=== PATIENT | female | born 1950 | race Hispanic/Latino ===

== ENCOUNTER 2018-03-22 21:54 | Inpatient (IN) | payer OTHER ==
[~2018-03-22] VITALS: Ht 142.2 cm; Wt 152.4 kg
[2018-03-22] MEDS ORDERED: NITROGLYCERIN 1GM/1 INCH PACKET TD ONE (22:07)
[2018-03-22] MEDS ORDERED: FUROSEMIDE 10 MG/ML 4ML VIAL ONE (22:07)
[2018-03-22] MEDS ORDERED: IPRATROPIUM/ALBUTEROL SULFATE 3 ML SOLUTION IH ONE (22:21)
[2018-03-22 22:25] LABS: BASOPHILS % (AUTO) 0.9 % (0.0-5.0); LYMPHOCYTES % (AUTO) 14.8 % (21.0-51.0); MEAN CORPUSCULAR HEMOGLOBIN 31.6 pg (27.0-33.0); MEAN CORPUSCULAR HGB CONC 32.7 g/dL (32.0-36.0); MEAN CORPUSCULAR VOLUME 96.7 fL (79-99); MONOCYTES % (AUTO) 4.3 % (3.0-13.0); NUCLEATED RED BLOOD CELLS 3.7 % (0.0-0.19); PLATELET COUNT (AUTO) 145 K/uL (130-400); RED BLOOD CELL COUNT(AUTO) 2.99 MIL/uL (4.00-5.50); RED CELL DISTRIBUTION WIDTH 16.9 % (11.0-15.5); WHITE BLOOD COUNT (AUTO) 7.9 K/uL (4.8-10.8)
[2018-03-22 22:34] LABS: CREATININE 3.7 mg/dL (0.5-1.5); INR 0.98 (0.85-1.15); PARTIAL THROMBOPLASTIN TIME 30.1 SEC (26.3-35.5); POTASSIUM 5.5 mmol/L (3.5-5.1); PROTHROMBIN TIME 10.3 SEC (9.6-11.6)
[2018-03-22 22:47] LABS: ALBUMIN 2.3 g/dL (3.5-5.0); BILIRUBIN,TOTAL 0.2 mg/dL (0.2-1.0); CREATINE KINASE MB 1.6 ng/mL (0.5-3.6); TOTAL PROTEIN, SERUM 7.2 g/dL (6.0-8.3)
[2018-03-22 22:48] LABS: B-TYPE NATRIURETIC PEPTIDE 461 pg/mL (0-100)
[2018-03-22 23:04] LABS: APPEARANCE,URINE Clear (CLEAR); BILIRUBIN,URINE Negative (NEGATIVE); COLOR,URINE Yellow (YELLOW); GLUCOSE, URINE (UA) 500 mg/dL (NEGATIVE); KETONES,URINE Negative (NEGATIVE); LEUKOCYTE ESTERASE ,URINE Negative (NEGATIVE); NITRATE,URINE Negative (NEGATIVE); OCCULT BLOOD,URINE Small (NEGATIVE); PH,URINE 6.5 (5.0-8.0); PROTEIN,URINE >=1000 (NEGATIVE); UROBILINOGEN,URINE 0.2 mg/dL (0.2-1.0)
[2018-03-22 23:20] LABS: BACTERIA,URINE Few /HPF (None Seen); SQUAMOUS EPITHELIAL CELL,UR 0-2 /HPF (0-2); WBC,URINE 0-1 /HPF (0-1)
[2018-03-23] VITALS (7 sets, daily range): BP systolic 144–159; BP diastolic 51–79
[2018-03-23] MEDS ORDERED: SODIUM POLYSTYRENE SULFONATE 15 GM/60 ML ML ONE (00:06)
[2018-03-23] MEDS ORDERED: VIT1CAPS46 PO (01:44)
[2018-03-23] MEDS ORDERED: LEVO100 PO (01:44)
[2018-03-23] MEDS ORDERED: CITA-107 PO (01:44)
[2018-03-23] MEDS ORDERED: FOLI1TAB61 PO (01:44)
[2018-03-23] MEDS ORDERED: OFLO5DRO OD (01:44)
[2018-03-23] MEDS ORDERED: LISI-613 PO (01:44)
[2018-03-23] MEDS ORDERED: FURO40TA7 PO (01:44)
[2018-03-23] MEDS ORDERED: GABA300S PO (01:44)
[2018-03-23] MEDS ORDERED: ATOR40TA69 PO (01:44)
[2018-03-23] MEDS ORDERED: KETOROLAC TROMETHAMINE 15MG/ML IV PRN (02:00)
[2018-03-23] MEDS ORDERED: DEXTROSE 50%-WATER 50 ML DISP.SYRIN IV PRN (02:00)
[2018-03-23] MEDS ORDERED: POTASSIUM CHLORIDE 20 MEQ ERTAB PO PRN (02:00)
[2018-03-23] MEDS: HEPARIN SODIUM 5000UNIT/ML 1ML VIAL SQ SCH ×3 (02:00→17:20)
[2018-03-23] MEDS ORDERED: LIDOCAINE HCL-MPF 1% 2ML VIAL IVP PRN (02:00)
[2018-03-23] MEDS ORDERED: POTASSIUM CHLORIDE 10% ELIXIR 20 MEQ/15 ML UDCUP PO PRN (02:00)
[2018-03-23] MEDS ORDERED: FUROSEMIDE 10 MG/ML 2ML VIAL IV SCH (02:00)
[2018-03-23] MEDS ORDERED: GLUCAGON 1MG KIT 1 MG ML IM PRN (02:00)
[2018-03-23] MEDS ORDERED: POTASSIUM CHLORIDE 20MEQ/100ML 100 ML IV PRN (02:00)
[2018-03-23 03:43] LABS: HEMATOCRIT 26.5 % (36-48); MEAN CORPUSCULAR HEMOGLOBIN 32.7 pg (27.0-33.0); MEAN CORPUSCULAR HGB CONC 33.6 g/dL (32.0-36.0); MEAN CORPUSCULAR VOLUME 97.4 fL (79-99); NUCLEATED RED BLOOD CELLS 0.1 % (0.0-0.19); PLATELET COUNT (AUTO) 144 K/uL (130-400); RED BLOOD CELL COUNT(AUTO) 2.73 MIL/uL (4.00-5.50); RED CELL DISTRIBUTION WIDTH 16.3 % (11.0-15.5); WHITE BLOOD COUNT (AUTO) 7.6 K/uL (4.8-10.8)
[2018-03-23 03:51] LABS: CREATININE 3.6 mg/dL (0.5-1.5); POTASSIUM 5.4 mmol/L (3.5-5.1)
[2018-03-23 03:53] LABS: B-TYPE NATRIURETIC PEPTIDE 246 pg/mL (0-100)
[2018-03-23] MEDS ORDERED: HEPARIN SODIUM 5000UNIT/ML 1ML VIAL ONE (06:22)
[2018-03-23] MEDS: INSULIN HUMULIN R 100 UNIT/ML 3ML SQ SCH ×4 (07:30→20:35)
[2018-03-23] MEDS ORDERED: CITALOPRAM 20 MG TABLET PO SCH (08:50)
[2018-03-23] MEDS: SODIUM POLYSTYRENE SULFONATE 15 GM/60 ML ML PO SCH ×2 (09:00→20:17)
[2018-03-23] MEDS ORDERED: OFLOXACIN 0.3% 5ML DROPS OD SCH ×2 (09:00→13:00)
[2018-03-23] MEDS ORDERED: SODIUM POLYSTYRENE SULFONATE 15 GM/60 ML ML RC SCH (09:30)
[2018-03-23] MEDS: LISINOPRIL 20 MG TABLET PO SCH ×2 (09:45→20:18)
[2018-03-23] MEDS: GABAPENTIN 300 MG CAPSULE PO SCH ×3 (09:45→20:24)
[2018-03-23] MEDS: FOLIC ACID/VITAMIN B COMP W-C 1 MG CAPSULE PO SCH (09:45)
[2018-03-23] MEDS: MOXIFLOXACIN HCL 0.5% 3ML DROPS OD SCH ×4 (09:46→20:25)
[2018-03-23 10:00] LABS: ABG HCO3 24.7 mmol/L (21.0-28.0); ABG OXYGEN SATURATION 76.7 % (95.0-99.0); ABG PCO2 74 mmHg (32-45)
[2018-03-23 10:19] LABS: ABG BASE EXCESS -5.3 mmol/L (-2.0-3.0); ABG HCO3 25.2 mmol/L (21.0-28.0); ABG OXYGEN SATURATION 92.6 % (95.0-99.0); ABG PCO2 72 mmHg (32-45)
[2018-03-23] MEDS ORDERED: LEVOTHYROXINE 100 MCG TABLET PO SCH (11:30)
[2018-03-23] MEDS ORDERED: GABAPENTIN 300 MG CAPSULE PO SCH (14:00)
[2018-03-23] MEDS: FUROSEMIDE 10 MG/ML 2ML VIAL IV SCH (14:04)
[2018-03-23] MEDS: ATORVASTATIN CALCIUM 40 MG TABLET PO SCH (20:18)
[2018-03-23] MEDS ORDERED: LISINOPRIL 20 MG TABLET PO SCH (21:00)
[2018-03-24] VITALS: BP 143/65
[2018-03-24] MEDS: FUROSEMIDE 10 MG/ML 2ML VIAL IV SCH ×2 (01:45→14:16)
[2018-03-24] MEDS: HEPARIN SODIUM 5000UNIT/ML 1ML VIAL SQ SCH ×3 (01:46→17:33)
[2018-03-24 03:25] VITALS: BP 139/60
[2018-03-24] MEDS: INSULIN HUMULIN R 100 UNIT/ML 3ML SQ SCH ×4 (05:48→21:01)
[2018-03-24 07:20] VITALS: BP 165/79
[2018-03-24] MEDS: CITALOPRAM 20 MG TABLET PO SCH (08:48)
[2018-03-24] MEDS: LEVOTHYROXINE 100 MCG TABLET PO SCH (08:48)
[2018-03-24] MEDS: FOLIC ACID/VITAMIN B COMP W-C 1 MG CAPSULE PO SCH (08:48)
[2018-03-24] MEDS: LISINOPRIL 20 MG TABLET PO SCH ×2 (08:48→19:33)
[2018-03-24] MEDS: GABAPENTIN 300 MG CAPSULE PO SCH ×3 (08:48→19:33)
[2018-03-24] MEDS: MOXIFLOXACIN HCL 0.5% 3ML DROPS OD SCH ×4 (08:49→19:35)
[2018-03-24] MEDS: SODIUM POLYSTYRENE SULFONATE 15 GM/60 ML ML PO SCH ×2 (08:49→19:34)
[2018-03-24] MEDS ORDERED: ATORVASTATIN CALCIUM 40 MG TABLET PO SCH (09:00)
[2018-03-24] MEDS ORDERED: FOLIC ACID/VITAMIN B COMP W-C 1 MG CAPSULE PO SCH (09:00)
[2018-03-24 11:17] VITALS: BP 145/69
[2018-03-24 12:10] LABS: ABG BASE EXCESS -6.9 mmol/L (-2.0-3.0); ABG HCO3 23.5 mmol/L (21.0-28.0); ABG PCO2 70 mmHg (32-45)
[2018-03-24 16:50] VITALS: BP 139/61
[2018-03-24] MEDS: ATORVASTATIN CALCIUM 40 MG TABLET PO SCH (19:33)
[2018-03-24 20:01] VITALS: BP 148/60
[2018-03-25] VITALS (7 sets, daily range): BP systolic 118–179; BP diastolic 60–76
[2018-03-25] MEDS: FUROSEMIDE 10 MG/ML 2ML VIAL IV SCH (02:11)
[2018-03-25] MEDS: HEPARIN SODIUM 5000UNIT/ML 1ML VIAL SQ SCH ×3 (02:12→17:18)
[2018-03-25 04:14] LABS: HEMATOCRIT 28.9 % (36-48); MEAN CORPUSCULAR HEMOGLOBIN 31.5 pg (27.0-33.0); MEAN CORPUSCULAR HGB CONC 31.9 g/dL (32.0-36.0); MEAN CORPUSCULAR VOLUME 98.8 fL (79-99); NUCLEATED RED BLOOD CELLS 0.2 % (0.0-0.19); PLATELET COUNT (AUTO) 168 K/uL (130-400); RED BLOOD CELL COUNT(AUTO) 2.93 MIL/uL (4.00-5.50); RED CELL DISTRIBUTION WIDTH 16.5 % (11.0-15.5); WHITE BLOOD COUNT (AUTO) 13.5 K/uL (4.8-10.8)
[2018-03-25 04:18] LABS: MAGNESIUM 1.7 mg/dL (1.80-2.40); PHOSPHORUS 6.7 mg/dL (2.5-4.9); POTASSIUM 5.4 mmol/L (3.5-5.1); URIC ACID 7.5 mg/dL (2.6-7.2)
[2018-03-25 04:31] LABS: % IRON SATURATION 12.2 % (22-44)
[2018-03-25] MEDS: INSULIN HUMULIN R 100 UNIT/ML 3ML SQ SCH ×4 (06:02→20:41)
[2018-03-25 07:52] LABS: ABG BASE EXCESS -7.8 mmol/L (-2.0-3.0); ABG OXYGEN SATURATION 96.8 % (95.0-99.0); ABG PCO2 72 mmHg (32-45)
[2018-03-25] MEDS: SODIUM POLYSTYRENE SULFONATE 15 GM/60 ML ML PO SCH ×2 (08:25→20:38)
[2018-03-25] MEDS: GABAPENTIN 300 MG CAPSULE PO SCH ×3 (08:25→20:39)
[2018-03-25] MEDS: FOLIC ACID/VITAMIN B COMP W-C 1 MG CAPSULE PO SCH (08:25)
[2018-03-25] MEDS: CITALOPRAM 20 MG TABLET PO SCH (08:26)
[2018-03-25] MEDS: MOXIFLOXACIN HCL 0.5% 3ML DROPS OD SCH ×4 (08:26→20:39)
[2018-03-25] MEDS: LISINOPRIL 20 MG TABLET PO SCH (08:26)
[2018-03-25] MEDS: LEVOTHYROXINE 100 MCG TABLET PO SCH (08:26)
[2018-03-25] MEDS ORDERED: COMPOUND IV MISC 1 EACH IVSOLN MISC PRN (11:30)
[2018-03-25] MEDS: CALCIUM ACETATE 667 MG CAPSULE PO SCH ×2 (12:00→17:17)
[2018-03-25 12:36] LABS: ABG HCO3 24.5 mmol/L (21.0-28.0); ABG OXYGEN SATURATION 94.8 % (95.0-99.0); ABG PCO2 79 mmHg (32-45)
[2018-03-25] MEDS ORDERED: IPRATROPIUM/ALBUTEROL SULFATE 3 ML SOLUTION IH SCH (12:45)
[2018-03-25] MEDS: ZOSYN 3.375GM+NS 50ML 50 ML IV SCH (13:30)
[2018-03-25 15:02] LABS: APPEARANCE,URINE CLOUDY (CLEAR); BILIRUBIN,URINE NEGATIVE (NEGATIVE); COLOR,URINE YELLOW (YELLOW); GLUCOSE, URINE (UA) 100 mg/dL (NEGATIVE); KETONES,URINE NEGATIVE (NEGATIVE); LEUKOCYTE ESTERASE ,URINE MODERATE (NEGATIVE); NITRATE,URINE NEGATIVE (NEGATIVE); OCCULT BLOOD,URINE SMALL (NEGATIVE); PROTEIN,URINE >=300 (NEGATIVE); UROBILINOGEN,URINE 0.2 mg/dL (0.2-1.0)
[2018-03-25 15:23] LABS: BACTERIA,URINE Many /HPF (None Seen); WBC,URINE 26-50 /HPF (0-1)
[2018-03-25 17:33] LABS: ABG BASE EXCESS -8.7 mmol/L (-2.0-3.0); ABG HCO3 22.2 mmol/L (21.0-28.0); ABG OXYGEN SATURATION 97.1 % (95.0-99.0); ABG PCO2 72 mmHg (32-45)
[2018-03-25] MEDS ORDERED: FUROSEMIDE 10 MG/ML 4ML VIAL IV ONE (18:00)
[2018-03-25] MEDS: IPRATROPIUM/ALBUTEROL SULFATE 3 ML SOLUTION IH SCH (18:34)
[2018-03-25] MEDS: ATORVASTATIN CALCIUM 40 MG TABLET PO SCH (20:38)
[2018-03-26] MEDS: IPRATROPIUM/ALBUTEROL SULFATE 3 ML SOLUTION IH SCH ×5 (00:14→23:09)
[2018-03-26] MEDS: ZOSYN 3.375GM+NS 50ML 50 ML IV SCH ×2 (01:19→13:37)
[2018-03-26] MEDS: HEPARIN SODIUM 5000UNIT/ML 1ML VIAL SQ SCH ×3 (01:20→17:10)
[2018-03-26 04:00] VITALS: BP 153/71
[2018-03-26 04:46] LABS: HEMATOCRIT 25.9 % (36-48); MEAN CORPUSCULAR HEMOGLOBIN 32.2 pg (27.0-33.0); MEAN CORPUSCULAR HGB CONC 32.7 g/dL (32.0-36.0); MEAN CORPUSCULAR VOLUME 98.6 fL (79-99); NUCLEATED RED BLOOD CELLS 0.6 % (0.0-0.19); PLATELET COUNT (AUTO) 120 K/uL (130-400); RED BLOOD CELL COUNT(AUTO) 2.63 MIL/uL (4.00-5.50); RED CELL DISTRIBUTION WIDTH 16.3 % (11.0-15.5); WHITE BLOOD COUNT (AUTO) 5.2 K/uL (4.8-10.8)
[2018-03-26 04:51] LABS: CREATININE 4.5 mg/dL (0.5-1.5); POTASSIUM 5.4 mmol/L (3.5-5.1)
[2018-03-26 05:02] LABS: B-TYPE NATRIURETIC PEPTIDE 535 pg/mL (0-100)
[2018-03-26 05:07] LABS: BAND NEUTROPHILS % (MANUAL) 9 % (0-2); BASOPHILS % (MANUAL) 2 % (0-2); EOSINOPHILS % (MANUAL) 3 % (1-6); LYMPHOCYTES % (MANUAL) 11 % (22-44); MAN.DIFF COMMENT-IMPRESSION MANUAL DIFFERENTIAL; MONOCYTES % (MANUAL) 8 % (2-9); PLATELET MORPHOLOGY COMMENT SLIGHTLY DECREASED; SEGMENTED NEUTROPHILS % 67 % (40-70)
[2018-03-26] MEDS: INSULIN HUMULIN R 100 UNIT/ML 3ML SQ SCH ×4 (05:36→21:00)
[2018-03-26 07:36] LABS: ABG BASE EXCESS -5.9 mmol/L (-2.0-3.0); ABG HCO3 24.5 mmol/L (21.0-28.0); ABG OXYGEN SATURATION 96.2 % (95.0-99.0); ABG PCO2 72 mmHg (32-45)
[2018-03-26 08:00] VITALS: BP 125/67
[2018-03-26] MEDS: LEVOTHYROXINE 100 MCG TABLET PO SCH (10:07)
[2018-03-26] MEDS: FOLIC ACID/VITAMIN B COMP W-C 1 MG CAPSULE PO SCH (10:07)
[2018-03-26] MEDS: CALCIUM ACETATE 667 MG CAPSULE PO SCH ×3 (10:07→16:39)
[2018-03-26] MEDS: CITALOPRAM 20 MG TABLET PO SCH (10:07)
[2018-03-26] MEDS: GABAPENTIN 300 MG CAPSULE PO SCH ×3 (10:07→21:02)
[2018-03-26] MEDS: SODIUM POLYSTYRENE SULFONATE 15 GM/60 ML ML PO SCH ×2 (10:07→21:01)
[2018-03-26] MEDS: IRON SUCROSE COMPLEX 100 MG in SODIUM CHLORIDE 0.9% 50 ML IV SCH (10:16)
[2018-03-26] MEDS: MOXIFLOXACIN HCL 0.5% 3ML DROPS OD SCH ×4 (10:36→21:02)
[2018-03-26 11:00] VITALS: BP 129/66
[2018-03-26 13:59] LABS: HEMATOCRIT 28.1 % (36-48); MEAN CORPUSCULAR HEMOGLOBIN 31.5 pg (27.0-33.0); MEAN CORPUSCULAR HGB CONC 31.6 g/dL (32.0-36.0); MEAN CORPUSCULAR VOLUME 99.8 fL (79-99); NUCLEATED RED BLOOD CELLS 0.3 % (0.0-0.19); PLATELET COUNT (AUTO) 132 K/uL (130-400); RED BLOOD CELL COUNT(AUTO) 2.82 MIL/uL (4.00-5.50); RED CELL DISTRIBUTION WIDTH 16.6 % (11.0-15.5); WHITE BLOOD COUNT (AUTO) 7.1 K/uL (4.8-10.8)
[2018-03-26 14:13] LABS: CREATININE 4.6 mg/dL (0.5-1.5); POTASSIUM 4.9 mmol/L (3.5-5.1)
[2018-03-26] MEDS ORDERED: SODIUM POLYSTYRENE SULFONATE 15 GM/60 ML ML RC ONE (14:45)
[2018-03-26 16:00] VITALS: BP 144/68
[2018-03-26 20:14] VITALS: BP 159/76
[2018-03-26] MEDS: ATORVASTATIN CALCIUM 40 MG TABLET PO SCH (21:03)
[2018-03-26 23:00] VITALS: BP 155/75
[2018-03-27] MEDS: ZOSYN 3.375GM+NS 50ML 50 ML IV SCH ×2 (00:56→13:29)
[2018-03-27] MEDS: HEPARIN SODIUM 5000UNIT/ML 1ML VIAL SQ SCH ×3 (01:42→17:15)
[2018-03-27 03:00] VITALS: BP 150/69
[2018-03-27 04:23] LABS: CREATININE 4.8 mg/dL (0.5-1.5); INR 0.97 (0.85-1.15); PARTIAL THROMBOPLASTIN TIME 22.4 SEC (26.3-35.5); POTASSIUM 4.8 mmol/L (3.5-5.1); PROTHROMBIN TIME 10.2 SEC (9.6-11.6)
[2018-03-27] MEDS: INSULIN HUMULIN R 100 UNIT/ML 3ML SQ SCH ×4 (05:53→21:31)
[2018-03-27 05:58] LABS: HEMATOCRIT 25.8 % (36-48); MEAN CORPUSCULAR HEMOGLOBIN 30.8 pg (27.0-33.0); MEAN CORPUSCULAR VOLUME 99.4 fL (79-99); NUCLEATED RED BLOOD CELLS 0.3 % (0.0-0.19); PLATELET COUNT (AUTO) 119 K/uL (130-400); RED BLOOD CELL COUNT(AUTO) 2.59 MIL/uL (4.00-5.50); RED CELL DISTRIBUTION WIDTH 16.6 % (11.0-15.5)
[2018-03-27 06:09] LABS: BAND NEUTROPHILS % (MANUAL) 1 % (0-2); EOSINOPHILS % (MANUAL) 13 % (1-6); LYMPHOCYTES % (MANUAL) 25 % (22-44); MAN.DIFF COMMENT-IMPRESSION MANUAL DIFFERENTIAL; MONOCYTES % (MANUAL) 7 % (2-9); SEGMENTED NEUTROPHILS % 54 % (40-70)
[2018-03-27 06:10] LABS: PLATELET MORPHOLOGY COMMENT SLIGHTLY DECREASED
[2018-03-27] MEDS: IPRATROPIUM/ALBUTEROL SULFATE 3 ML SOLUTION IH SCH ×4 (06:13→23:30)
[2018-03-27 08:00] VITALS: BP 165/79
[2018-03-27] MEDS: SODIUM POLYSTYRENE SULFONATE 15 GM/60 ML ML PO SCH (09:00)
[2018-03-27] MEDS: LEVOTHYROXINE 100 MCG TABLET PO SCH (09:22)
[2018-03-27] MEDS: FOLIC ACID/VITAMIN B COMP W-C 1 MG CAPSULE PO SCH (09:22)
[2018-03-27] MEDS: GABAPENTIN 300 MG CAPSULE PO SCH ×3 (09:23→21:22)
[2018-03-27] MEDS: CITALOPRAM 20 MG TABLET PO SCH (09:23)
[2018-03-27] MEDS: CALCIUM ACETATE 667 MG CAPSULE PO SCH ×3 (09:24→17:14)
[2018-03-27] MEDS: MOXIFLOXACIN HCL 0.5% 3ML DROPS OD SCH ×4 (09:25→21:24)
[2018-03-27] MEDS: HYDRALAZINE HCL 20 MG/ML VIAL IV PRN (09:29)
[2018-03-27 11:00] VITALS: BP 133/61
[2018-03-27] MEDS: IRON SUCROSE COMPLEX 100 MG in SODIUM CHLORIDE 0.9% 50 ML IV SCH (13:29)
[2018-03-27] MEDS ORDERED: EPOETIN ALFA 10,000 UNIT/ML VIAL SQ SCH (14:00)
[2018-03-27 16:00] VITALS: BP 130/62
[2018-03-27 19:00] VITALS: BP 144/46
[2018-03-27] MEDS: ATORVASTATIN CALCIUM 40 MG TABLET PO SCH (21:22)
[2018-03-28] VITALS: BP 134/67
[2018-03-28] MEDS: HEPARIN SODIUM 5000UNIT/ML 1ML VIAL SQ SCH ×2 (00:57→09:25)
[2018-03-28] MEDS: ZOSYN 3.375GM+NS 50ML 50 ML IV SCH ×2 (01:19→13:35)
[2018-03-28 04:00] VITALS: BP 137/62
[2018-03-28 04:06] LABS: BASOPHILS % (AUTO) 0.8 % (0.0-5.0); EOSINOPHILS % (AUTO) 5.6 % (0.0-8.0); HEMATOCRIT 26.2 % (36-48); LYMPHOCYTES % (AUTO) 14.8 % (21.0-51.0); MEAN CORPUSCULAR HEMOGLOBIN 30.4 pg (27.0-33.0); MEAN CORPUSCULAR HGB CONC 31.1 g/dL (32.0-36.0); NEUTROPHILS % (AUTO) 72.8 % (40.0-77.0); NUCLEATED RED BLOOD CELLS 0.5 % (0.0-0.19); PLATELET COUNT (AUTO) 120 K/uL (130-400); RED BLOOD CELL COUNT(AUTO) 2.68 MIL/uL (4.00-5.50); RED CELL DISTRIBUTION WIDTH 16.8 % (11.0-15.5); WHITE BLOOD COUNT (AUTO) 6.6 K/uL (4.8-10.8)
[2018-03-28 04:45] LABS: CREATININE 5.2 mg/dL (0.5-1.5); POTASSIUM 4.3 mmol/L (3.5-5.1)
[2018-03-28] MEDS: INSULIN HUMULIN R 100 UNIT/ML 3ML SQ SCH ×4 (06:06→21:08)
[2018-03-28] MEDS: IPRATROPIUM/ALBUTEROL SULFATE 3 ML SOLUTION IH SCH ×4 (07:06→23:26)
[2018-03-28 08:00] VITALS: BP 132/58
[2018-03-28] MEDS ORDERED: FLUOXETINE HCL 10 MG CAPSULE PO SCH (09:00)
[2018-03-28] MEDS: LEVOTHYROXINE 100 MCG TABLET PO SCH (09:40)
[2018-03-28] MEDS: CALCIUM ACETATE 667 MG CAPSULE PO SCH ×3 (09:40→15:40)
[2018-03-28] MEDS: MOXIFLOXACIN HCL 0.5% 3ML DROPS OD SCH ×4 (09:41→21:14)
[2018-03-28] MEDS: FOLIC ACID/VITAMIN B COMP W-C 1 MG CAPSULE PO SCH (09:41)
[2018-03-28] MEDS: FLUOXETINE HCL 20 MG CAPSULE PO SCH (09:41)
[2018-03-28] MEDS: GABAPENTIN 300 MG CAPSULE PO SCH ×3 (09:41→21:12)
[2018-03-28] MEDS: IRON SUCROSE COMPLEX 100 MG in SODIUM CHLORIDE 0.9% 50 ML IV SCH (09:41)
[2018-03-28 11:00] VITALS: BP 141/62
[2018-03-28] MEDS ORDERED: COMPOUND IV MISC 1 EACH IVSOLN MISC PRN (11:45)
[2018-03-28] MEDS ORDERED: SODIUM CHLORIDE 45 ML SPRY NS PRN (13:00)
[2018-03-28] MEDS ORDERED: OXYMETAZOLINE HCL SPRAY 15 ML BOTTLE EN PRN (13:00)
[2018-03-28 16:00] VITALS: BP 118/52
[2018-03-28] MEDS: HONEY 1 APPL/ML TUBE TP SCH (18:42)
[2018-03-28 20:00] VITALS: BP 128/60
[2018-03-28] MEDS ORDERED: HYDROXYZINE HCL 25 MG TABLET PO SCH (21:00)
[2018-03-28] MEDS: HYDROXYZINE HCL 25 MG TABLET PO SCH (21:12)
[2018-03-28] MEDS: ATORVASTATIN CALCIUM 40 MG TABLET PO SCH (21:12)
[2018-03-29] VITALS (21 sets, daily range): BP systolic 97–141; BP diastolic 42–72
[2018-03-29] MEDS: ZOSYN 3.375GM+NS 50ML 50 ML IV SCH ×2 (00:52→13:30)
[2018-03-29 04:57] LABS: ABG HCO3 23.8 mmol/L (21.0-28.0); ABG OXYGEN SATURATION 96.8 % (95.0-99.0); ABG PCO2 73 mmHg (32-45)
[2018-03-29 05:03] LABS: INR 0.98 (0.85-1.15); PARTIAL THROMBOPLASTIN TIME 31.3 SEC (26.3-35.5); PROTHROMBIN TIME 10.3 SEC (9.6-11.6)
[2018-03-29 05:05] LABS: BASOPHILS % (AUTO) 0.8 % (0.0-5.0); HEMATOCRIT 25.2 % (36-48); MEAN CORPUSCULAR HEMOGLOBIN 30.9 pg (27.0-33.0); MEAN CORPUSCULAR HGB CONC 31.7 g/dL (32.0-36.0); MEAN CORPUSCULAR VOLUME 97.5 fL (79-99); MONOCYTES % (AUTO) 4.9 % (3.0-13.0); NEUTROPHILS % (AUTO) 75.3 % (40.0-77.0); NUCLEATED RED BLOOD CELLS 0.4 % (0.0-0.19); PLATELET COUNT (AUTO) 132 K/uL (130-400); RED BLOOD CELL COUNT(AUTO) 2.59 MIL/uL (4.00-5.50); RED CELL DISTRIBUTION WIDTH 16.4 % (11.0-15.5)
[2018-03-29 05:14] LABS: CREATININE 5.7 mg/dL (0.5-1.5); POTASSIUM 4.3 mmol/L (3.5-5.1)
[2018-03-29] MEDS: INSULIN HUMULIN R 100 UNIT/ML 3ML SQ SCH ×4 (05:21→21:00)
[2018-03-29] MEDS: IPRATROPIUM/ALBUTEROL SULFATE 3 ML SOLUTION IH SCH ×3 (06:38→18:34)
[2018-03-29] MEDS: LEVOTHYROXINE 100 MCG TABLET PO SCH (08:44)
[2018-03-29] MEDS: CALCIUM ACETATE 667 MG CAPSULE PO SCH ×3 (08:44→16:02)
[2018-03-29] MEDS: GABAPENTIN 300 MG CAPSULE PO SCH ×3 (08:44→21:10)
[2018-03-29] MEDS: FLUOXETINE HCL 20 MG CAPSULE PO SCH (08:44)
[2018-03-29] MEDS: FOLIC ACID/VITAMIN B COMP W-C 1 MG CAPSULE PO SCH (08:44)
[2018-03-29] MEDS: IRON SUCROSE COMPLEX 100 MG in SODIUM CHLORIDE 0.9% 50 ML IV SCH (08:45)
[2018-03-29] MEDS: MOXIFLOXACIN HCL 0.5% 3ML DROPS OD SCH ×4 (08:45→21:10)
[2018-03-29] MEDS: HONEY 1 APPL/ML TUBE TP SCH (08:46)
[2018-03-29] MEDS ORDERED: LIDOCAINE HCL 1% MDV 50ML VIAL ONE (13:04)
[2018-03-29 14:39] LABS: ABG BASE EXCESS -7.1 mmol/L (-2.0-3.0); ABG HCO3 22.8 mmol/L (21.0-28.0); ABG OXYGEN SATURATION 97.8 % (95.0-99.0); ABG PCO2 65 mmHg (32-45)
[2018-03-29] MEDS ORDERED: HEPARIN SODIUM 5000UNIT/ML 1ML VIAL ONE (16:58)
[2018-03-29] MEDS ORDERED: SODIUM CHLORIDE 0.9% 1000ML 1,000 ML IV ONE (16:59)
[2018-03-29] MEDS: ATORVASTATIN CALCIUM 40 MG TABLET PO SCH (21:10)
[2018-03-29] MEDS: HYDROXYZINE HCL 25 MG TABLET PO SCH (21:10)
[2018-03-29] MEDS: ACETAMINOPHEN 325 MG TAB PO PRN (21:27)
[2018-03-30] VITALS (25 sets, daily range): BP systolic 94–135; BP diastolic 39–66
[2018-03-30] MEDS: IPRATROPIUM/ALBUTEROL SULFATE 3 ML SOLUTION IH SCH ×4 (00:23→18:24)
[2018-03-30] MEDS: ZOSYN 3.375GM+NS 50ML 50 ML IV SCH (01:45)
[2018-03-30 03:22] LABS: BASOPHILS % (AUTO) 0.6 % (0.0-5.0); EOSINOPHILS % (AUTO) 5.6 % (0.0-8.0); HEMATOCRIT 23.9 % (36-48); LYMPHOCYTES % (AUTO) 12.3 % (21.0-51.0); MEAN CORPUSCULAR HGB CONC 32.7 g/dL (32.0-36.0); MEAN CORPUSCULAR VOLUME 97.9 fL (79-99); MONOCYTES % (AUTO) 5.2 % (3.0-13.0); NEUTROPHILS % (AUTO) 76.3 % (40.0-77.0); PLATELET COUNT (AUTO) 126 K/uL (130-400); RED BLOOD CELL COUNT(AUTO) 2.44 MIL/uL (4.00-5.50); RED CELL DISTRIBUTION WIDTH 16.3 % (11.0-15.5); WHITE BLOOD COUNT (AUTO) 7.6 K/uL (4.8-10.8)
[2018-03-30 03:27] LABS: CREATININE 5.2 mg/dL (0.5-1.5); POTASSIUM 4.1 mmol/L (3.5-5.1)
[2018-03-30] MEDS: INSULIN HUMULIN R 100 UNIT/ML 3ML SQ SCH ×4 (06:22→20:35)
[2018-03-30] MEDS: CALCIUM ACETATE 667 MG CAPSULE PO SCH ×3 (07:50→16:38)
[2018-03-30] MEDS: GABAPENTIN 300 MG CAPSULE PO SCH ×3 (07:50→20:33)
[2018-03-30] MEDS ORDERED: SODIUM CHLORIDE 0.9% 1000ML 1,000 ML IV ONE (08:27)
[2018-03-30] MEDS ORDERED: HEPARIN SODIUM 5000UNIT/ML 1ML VIAL ONE (08:27)
[2018-03-30] MEDS: FLUOXETINE HCL 20 MG CAPSULE PO SCH (08:59)
[2018-03-30] MEDS: FOLIC ACID/VITAMIN B COMP W-C 1 MG CAPSULE PO SCH (08:59)
[2018-03-30] MEDS: LEVOTHYROXINE 100 MCG TABLET PO SCH (08:59)
[2018-03-30] MEDS: MOXIFLOXACIN HCL 0.5% 3ML DROPS OD SCH (09:03)
[2018-03-30] MEDS: HONEY 1 APPL/ML TUBE TP SCH (09:04)
[2018-03-30] MEDS: IRON SUCROSE COMPLEX 100 MG in SODIUM CHLORIDE 0.9% 50 ML IV SCH (09:28)
[2018-03-30 10:33] LABS: ABG HCO3 27.2 mmol/L (21.0-28.0); ABG OXYGEN SATURATION 94.1 % (95.0-99.0); ABG PCO2 66 mmHg (32-45)
[2018-03-30] MEDS: CEFTRIAXONE SODIUM 1 GM IVP SCH (20:33)
[2018-03-30] MEDS: HYDROXYZINE HCL 25 MG TABLET PO SCH (20:33)
[2018-03-30] MEDS: ATORVASTATIN CALCIUM 40 MG TABLET PO SCH (20:33)
[2018-03-30] MEDS ORDERED: CEFTRIAXONE 1GM/D5W 50ML 50 ML IV SCH (21:00)
[2018-03-31] VITALS (14 sets, daily range): BP systolic 98–141; BP diastolic 29–93
[2018-03-31] MEDS: IPRATROPIUM/ALBUTEROL SULFATE 3 ML SOLUTION IH SCH ×5 (00:26→23:23)
[2018-03-31 05:29] LABS: BASOPHILS % (AUTO) 0.7 % (0.0-5.0); EOSINOPHILS % (AUTO) 6.2 % (0.0-8.0); HEMATOCRIT 30.7 % (36-48); LYMPHOCYTES % (AUTO) 19.5 % (21.0-51.0); MEAN CORPUSCULAR HEMOGLOBIN 30.7 pg (27.0-33.0); MEAN CORPUSCULAR HGB CONC 32.2 g/dL (32.0-36.0); MEAN CORPUSCULAR VOLUME 95.4 fL (79-99); MONOCYTES % (AUTO) 5.2 % (3.0-13.0); NEUTROPHILS % (AUTO) 68.4 % (40.0-77.0); NUCLEATED RED BLOOD CELLS 2.6 % (0.0-0.19); PLATELET COUNT (AUTO) 117 K/uL (130-400); RED BLOOD CELL COUNT(AUTO) 3.22 MIL/uL (4.00-5.50); RED CELL DISTRIBUTION WIDTH 16.3 % (11.0-15.5); WHITE BLOOD COUNT (AUTO) 6.1 K/uL (4.8-10.8)
[2018-03-31 05:37] LABS: CREATININE 4.8 mg/dL (0.5-1.5); POTASSIUM 3.5 mmol/L (3.5-5.1)
[2018-03-31] MEDS: INSULIN HUMULIN R 100 UNIT/ML 3ML SQ SCH ×4 (05:42→21:00)
[2018-03-31] MEDS: LEVOTHYROXINE 100 MCG TABLET PO SCH (08:39)
[2018-03-31] MEDS: FOLIC ACID/VITAMIN B COMP W-C 1 MG CAPSULE PO SCH (08:39)
[2018-03-31] MEDS: GABAPENTIN 300 MG CAPSULE PO SCH ×3 (08:39→21:49)
[2018-03-31] MEDS: FLUOXETINE HCL 20 MG CAPSULE PO SCH (08:39)
[2018-03-31] MEDS: HONEY 1 APPL/ML TUBE TP SCH (08:40)
[2018-03-31] MEDS: CALCIUM ACETATE 667 MG CAPSULE PO SCH ×3 (08:40→16:19)
[2018-03-31] MEDS: IRON SUCROSE COMPLEX 100 MG in SODIUM CHLORIDE 0.9% 50 ML IV SCH (08:54)
[2018-03-31 11:08] LABS: HEPATITIS Bs ANTIGEN SCREEN P Negative (Negative)
[2018-03-31] MEDS: HEPARIN SODIUM 5000UNIT/ML 1ML VIAL SQ SCH ×2 (14:24→22:26)
[2018-03-31] MEDS: CEFTRIAXONE SODIUM 1 GM IVP SCH (21:47)
[2018-03-31] MEDS: LACTULOSE 20 GM/30 ML UDCUP PO PRN (21:49)
[2018-03-31] MEDS: HYDROXYZINE HCL 25 MG TABLET PO SCH (21:49)
[2018-03-31] MEDS: ATORVASTATIN CALCIUM 40 MG TABLET PO SCH (21:49)
[2018-04-01] MEDS ORDERED: SODIUM CHLORIDE 3% FOR INHALATION 4 ML/AMP VIAL.NEB IH ONE (02:14)
[2018-04-01 03:56] VITALS: BP 144/66
[2018-04-01 05:13] LABS: BASOPHILS % (AUTO) 0.9 % (0.0-5.0); HEMATOCRIT 21.7 % (36-48); MEAN CORPUSCULAR HEMOGLOBIN 32.1 pg (27.0-33.0); MEAN CORPUSCULAR HGB CONC 33.5 g/dL (32.0-36.0); MEAN CORPUSCULAR VOLUME 95.9 fL (79-99); MONOCYTES % (AUTO) 6.4 % (3.0-13.0); NEUTROPHILS % (AUTO) 69.7 % (40.0-77.0); NUCLEATED RED BLOOD CELLS 2.3 % (0.0-0.19); PLATELET COUNT (AUTO) 147 K/uL (130-400); RED BLOOD CELL COUNT(AUTO) 2.26 MIL/uL (4.00-5.50); RED CELL DISTRIBUTION WIDTH 16.3 % (11.0-15.5); WHITE BLOOD COUNT (AUTO) 8.2 K/uL (4.8-10.8)
[2018-04-01 05:21] LABS: CREATININE 5.2 mg/dL (0.5-1.5); POTASSIUM 3.5 mmol/L (3.5-5.1)
[2018-04-01] MEDS: IPRATROPIUM/ALBUTEROL SULFATE 3 ML SOLUTION IH SCH ×4 (06:11→23:19)
[2018-04-01] MEDS: HEPARIN SODIUM 5000UNIT/ML 1ML VIAL SQ SCH ×3 (06:27→23:04)
[2018-04-01] MEDS: INSULIN HUMULIN R 100 UNIT/ML 3ML SQ SCH ×4 (06:28→21:00)
[2018-04-01 08:00] VITALS: BP 122/58
[2018-04-01] MEDS: CALCIUM ACETATE 667 MG CAPSULE PO SCH ×3 (08:00→17:00)
[2018-04-01] MEDS: HONEY 1 APPL/ML TUBE TP SCH (09:00)
[2018-04-01] MEDS: IRON SUCROSE COMPLEX 100 MG in SODIUM CHLORIDE 0.9% 50 ML IV SCH (11:22)
[2018-04-01] MEDS: FLUOXETINE HCL 20 MG CAPSULE PO SCH (11:23)
[2018-04-01] MEDS: GABAPENTIN 300 MG CAPSULE PO SCH ×3 (11:23→21:32)
[2018-04-01] MEDS: FOLIC ACID/VITAMIN B COMP W-C 1 MG CAPSULE PO SCH (11:23)
[2018-04-01] MEDS: LEVOTHYROXINE 100 MCG TABLET PO SCH (11:23)
[2018-04-01 13:13] VITALS: BP 120/55
[2018-04-01 16:00] VITALS: BP 134/63
[2018-04-01] MEDS ORDERED: EPOETIN ALFA 20,000 UNIT/ML VIAL SQ SCH (18:41)
[2018-04-01 19:50] VITALS: BP 130/57
[2018-04-01] MEDS ORDERED: EPOETIN ALFA 3,000 UNIT/ML ML SQ SCH (21:00)
[2018-04-01] MEDS: CEFTRIAXONE SODIUM 1 GM IVP SCH (21:32)
[2018-04-01] MEDS: ATORVASTATIN CALCIUM 40 MG TABLET PO SCH (21:32)
[2018-04-01] MEDS: HYDROXYZINE HCL 25 MG TABLET PO SCH (21:32)
[2018-04-02] VITALS (11 sets, daily range): BP systolic 116–147; BP diastolic 50–81
[2018-04-02 05:12] LABS: BASOPHILS % (AUTO) 0.9 % (0.0-5.0); EOSINOPHILS % (AUTO) 5.8 % (0.0-8.0); LYMPHOCYTES % (AUTO) 14.7 % (21.0-51.0); MEAN CORPUSCULAR HGB CONC 32.2 g/dL (32.0-36.0); MEAN CORPUSCULAR VOLUME 96.1 fL (79-99); MONOCYTES % (AUTO) 5.5 % (3.0-13.0); NEUTROPHILS % (AUTO) 73.1 % (40.0-77.0); NUCLEATED RED BLOOD CELLS 1.8 % (0.0-0.19); PLATELET COUNT (AUTO) 154 K/uL (130-400); RED BLOOD CELL COUNT(AUTO) 2.39 MIL/uL (4.00-5.50); RED CELL DISTRIBUTION WIDTH 15.9 % (11.0-15.5); WHITE BLOOD COUNT (AUTO) 8.6 K/uL (4.8-10.8)
[2018-04-02 05:30] LABS: BILIRUBIN,TOTAL 0.2 mg/dL (0.2-1.0); CREATININE 4.2 mg/dL (0.5-1.5); POTASSIUM 3.5 mmol/L (3.5-5.1); TOTAL PROTEIN, SERUM 6.4 g/dL (6.0-8.3)
[2018-04-02] MEDS: INSULIN HUMULIN R 100 UNIT/ML 3ML SQ SCH ×4 (06:03→21:00)
[2018-04-02] MEDS: HEPARIN SODIUM 5000UNIT/ML 1ML VIAL SQ SCH ×3 (06:18→23:27)
[2018-04-02] MEDS: IPRATROPIUM/ALBUTEROL SULFATE 3 ML SOLUTION IH SCH ×4 (06:20→23:14)
[2018-04-02] MEDS: LEVOTHYROXINE 100 MCG TABLET PO SCH (09:53)
[2018-04-02] MEDS: HONEY 1 APPL/ML TUBE TP SCH (09:53)
[2018-04-02] MEDS: FLUOXETINE HCL 20 MG CAPSULE PO SCH (09:54)
[2018-04-02] MEDS: FOLIC ACID/VITAMIN B COMP W-C 1 MG CAPSULE PO SCH (09:54)
[2018-04-02] MEDS: GABAPENTIN 300 MG CAPSULE PO SCH ×3 (09:54→20:21)
[2018-04-02] MEDS: IRON SUCROSE COMPLEX 100 MG in SODIUM CHLORIDE 0.9% 50 ML IV SCH (09:54)
[2018-04-02] MEDS: CALCIUM ACETATE 667 MG CAPSULE PO SCH ×3 (09:54→17:18)
[2018-04-02] MEDS ORDERED: EPOETIN ALFA 10,000 UNIT/ML VIAL SQ SCH (13:45)
[2018-04-02] MEDS ORDERED: EPOETIN ALFA 20,000 UNIT/ML VIAL SQ SCH (14:00)
[2018-04-02] MEDS ORDERED: LIDOCAINE HCL 2% 20ML ONE (16:03)
[2018-04-02] MEDS ORDERED: SODIUM BICARB 50MEQ 50ML VIAL ONE (16:03)
[2018-04-02] MEDS: CEFTRIAXONE SODIUM 1 GM IVP SCH (20:20)
[2018-04-02] MEDS: ATORVASTATIN CALCIUM 40 MG TABLET PO SCH (20:20)
[2018-04-02] MEDS: HYDROXYZINE HCL 25 MG TABLET PO SCH (20:20)
[2018-04-03] VITALS: BP 128/57
[2018-04-03 04:00] VITALS: BP 127/62
[2018-04-03 05:05] LABS: BASOPHILS % (AUTO) 0.6 % (0.0-5.0); EOSINOPHILS % (AUTO) 5.9 % (0.0-8.0); HEMATOCRIT 22.4 % (36-48); LYMPHOCYTES % (AUTO) 13.8 % (21.0-51.0); MEAN CORPUSCULAR HEMOGLOBIN 32.2 pg (27.0-33.0); MEAN CORPUSCULAR HGB CONC 33.4 g/dL (32.0-36.0); MEAN CORPUSCULAR VOLUME 96.6 fL (79-99); MONOCYTES % (AUTO) 5.3 % (3.0-13.0); NEUTROPHILS % (AUTO) 74.4 % (40.0-77.0); NUCLEATED RED BLOOD CELLS 1.4 % (0.0-0.19); PLATELET COUNT (AUTO) 157 K/uL (130-400); RED BLOOD CELL COUNT(AUTO) 2.31 MIL/uL (4.00-5.50); WHITE BLOOD COUNT (AUTO) 8.7 K/uL (4.8-10.8)
[2018-04-03 05:15] LABS: CREATININE 4.6 mg/dL (0.5-1.5); POTASSIUM 3.6 mmol/L (3.5-5.1)
[2018-04-03] MEDS: INSULIN HUMULIN R 100 UNIT/ML 3ML SQ SCH ×4 (06:28→21:00)
[2018-04-03] MEDS: HEPARIN SODIUM 5000UNIT/ML 1ML VIAL SQ SCH ×3 (06:49→23:08)
[2018-04-03] MEDS: IPRATROPIUM/ALBUTEROL SULFATE 3 ML SOLUTION IH SCH ×4 (06:51→23:33)
[2018-04-03 08:00] VITALS: BP 107/46
[2018-04-03] MEDS: LEVOTHYROXINE 100 MCG TABLET PO SCH (09:28)
[2018-04-03] MEDS: FOLIC ACID/VITAMIN B COMP W-C 1 MG CAPSULE PO SCH (09:28)
[2018-04-03] MEDS: GABAPENTIN 300 MG CAPSULE PO SCH ×3 (09:28→21:05)
[2018-04-03] MEDS: FLUOXETINE HCL 20 MG CAPSULE PO SCH (09:28)
[2018-04-03] MEDS: CALCIUM ACETATE 667 MG CAPSULE PO SCH ×3 (09:28→16:13)
[2018-04-03] MEDS: IRON SUCROSE COMPLEX 100 MG in SODIUM CHLORIDE 0.9% 50 ML IV SCH (09:29)
[2018-04-03] MEDS: HONEY 1 APPL/ML TUBE TP SCH (09:30)
[2018-04-03 12:00] VITALS: BP 124/64
[2018-04-03 16:02] VITALS: BP 132/56
[2018-04-03 19:00] VITALS: BP 150/53
[2018-04-03] MEDS: CEFTRIAXONE SODIUM 1 GM IVP SCH (21:04)
[2018-04-03] MEDS: HYDROXYZINE HCL 25 MG TABLET PO SCH (21:05)
[2018-04-03] MEDS: ATORVASTATIN CALCIUM 40 MG TABLET PO SCH (21:05)
[2018-04-04] VITALS: BP 118/40
[2018-04-04 04:00] VITALS: BP 125/65
[2018-04-04 05:11] LABS: BASOPHILS % (AUTO) 0.7 % (0.0-5.0); EOSINOPHILS % (AUTO) 5.1 % (0.0-8.0); HEMATOCRIT 22.8 % (36-48); LYMPHOCYTES % (AUTO) 13.8 % (21.0-51.0); MEAN CORPUSCULAR HEMOGLOBIN 31.4 pg (27.0-33.0); MEAN CORPUSCULAR HGB CONC 32.8 g/dL (32.0-36.0); MEAN CORPUSCULAR VOLUME 95.8 fL (79-99); MONOCYTES % (AUTO) 5.5 % (3.0-13.0); NEUTROPHILS % (AUTO) 74.9 % (40.0-77.0); PLATELET COUNT (AUTO) 160 K/uL (130-400); RED BLOOD CELL COUNT(AUTO) 2.38 MIL/uL (4.00-5.50); RED CELL DISTRIBUTION WIDTH 16.2 % (11.0-15.5)
[2018-04-04 05:26] LABS: CREATININE 3.7 mg/dL (0.5-1.5); POTASSIUM 3.3 mmol/L (3.5-5.1)
[2018-04-04] MEDS: INSULIN HUMULIN R 100 UNIT/ML 3ML SQ SCH ×4 (06:05→21:00)
[2018-04-04] MEDS: HEPARIN SODIUM 5000UNIT/ML 1ML VIAL SQ SCH ×3 (06:44→22:55)
[2018-04-04] MEDS: IPRATROPIUM/ALBUTEROL SULFATE 3 ML SOLUTION IH SCH ×4 (07:16→23:35)
[2018-04-04] MEDS: FOLIC ACID/VITAMIN B COMP W-C 1 MG CAPSULE PO SCH (09:26)
[2018-04-04] MEDS: GABAPENTIN 300 MG CAPSULE PO SCH ×3 (09:26→20:27)
[2018-04-04] MEDS: FLUOXETINE HCL 20 MG CAPSULE PO SCH (09:26)
[2018-04-04] MEDS: LEVOTHYROXINE 100 MCG TABLET PO SCH (09:26)
[2018-04-04] MEDS: HONEY 1 APPL/ML TUBE TP SCH (09:27)
[2018-04-04] MEDS: IRON SUCROSE COMPLEX 100 MG in SODIUM CHLORIDE 0.9% 50 ML IV SCH (09:27)
[2018-04-04] MEDS: CALCIUM ACETATE 667 MG CAPSULE PO SCH ×3 (09:27→18:40)
[2018-04-04 09:33] VITALS: BP 111/58
[2018-04-04 11:40] VITALS: BP 121/48
[2018-04-04 16:02] VITALS: BP 153/60
[2018-04-04 19:46] VITALS: BP 144/58
[2018-04-04] MEDS: ATORVASTATIN CALCIUM 40 MG TABLET PO SCH (20:27)
[2018-04-04] MEDS: CEFTRIAXONE SODIUM 1 GM IVP SCH (20:27)
[2018-04-04] MEDS: HYDROXYZINE HCL 25 MG TABLET PO SCH (20:27)
[2018-04-05 01:34] VITALS: BP 113/48
[2018-04-05 04:35] LABS: HEMATOCRIT 23.4 % (36-48); MEAN CORPUSCULAR HEMOGLOBIN 32.4 pg (27.0-33.0); MEAN CORPUSCULAR VOLUME 98.2 fL (79-99); NUCLEATED RED BLOOD CELLS 2.1 % (0.0-0.19); PLATELET COUNT (AUTO) 158 K/uL (130-400); RED BLOOD CELL COUNT(AUTO) 2.38 MIL/uL (4.00-5.50); RED CELL DISTRIBUTION WIDTH 17.1 % (11.0-15.5)
[2018-04-05 04:41] VITALS: BP 140/57
[2018-04-05 04:51] LABS: BILIRUBIN,TOTAL 0.2 mg/dL (0.2-1.0); CREATININE 4.3 mg/dL (0.5-1.5); POTASSIUM 3.4 mmol/L (3.5-5.1); TOTAL PROTEIN, SERUM 6.5 g/dL (6.0-8.3)
[2018-04-05 05:16] LABS: ABG BASE EXCESS -1.2 mmol/L (-2.0-3.0); ABG OXYGEN SATURATION 64.2 % (95.0-99.0); ABG PCO2 68 mmHg (32-45)
[2018-04-05] MEDS ORDERED: 0.9% SODIUM CHLORIDE 250 ML IV BAG IV PRN (05:30)
[2018-04-05] MEDS ORDERED: ALBUMIN (HUMAN) 25% 100 ML IV PRN (05:30)
[2018-04-05] MEDS: HEPARIN SODIUM 5000UNIT/ML 1ML VIAL SQ SCH ×3 (06:07→23:24)
[2018-04-05] MEDS: HEPARIN SODIUM 5000UNIT/ML 1ML VIAL IJ PRN (06:07)
[2018-04-05] MEDS: SODIUM CHLORIDE 0.9% 1000ML 1,000 ML IV PRN (06:08)
[2018-04-05] MEDS: INSULIN HUMULIN R 100 UNIT/ML 3ML SQ SCH ×4 (06:08→21:00)
[2018-04-05] MEDS: IPRATROPIUM/ALBUTEROL SULFATE 3 ML SOLUTION IH SCH ×3 (07:05→18:43)
[2018-04-05 07:30] VITALS: BP 128/58
[2018-04-05 07:41] LABS: ABG BASE EXCESS -4.7 mmol/L (-2.0-3.0); ABG HCO3 24.1 mmol/L (21.0-28.0); ABG OXYGEN SATURATION 94.6 % (95.0-99.0); ABG PCO2 60 mmHg (32-45)
[2018-04-05] MEDS: LEVOTHYROXINE 100 MCG TABLET PO SCH (08:00)
[2018-04-05] MEDS: GABAPENTIN 300 MG CAPSULE PO SCH ×3 (09:00→22:04)
[2018-04-05] MEDS: FOLIC ACID/VITAMIN B COMP W-C 1 MG CAPSULE PO SCH (09:00)
[2018-04-05] MEDS: HONEY 1 APPL/ML TUBE TP SCH (09:00)
[2018-04-05] MEDS: FLUOXETINE HCL 20 MG CAPSULE PO SCH (09:00)
[2018-04-05 11:00] VITALS: BP 128/57
[2018-04-05 11:26] LABS: ABG HCO3 28.4 mmol/L (21.0-28.0); ABG OXYGEN SATURATION 94.5 % (95.0-99.0); ABG PCO2 69 mmHg (32-45)
[2018-04-05] MEDS: CALCIUM ACETATE 667 MG CAPSULE PO SCH ×3 (12:00→17:00)
[2018-04-05 16:00] VITALS: BP 146/60
[2018-04-05] MEDS: IRON SUCROSE COMPLEX 100 MG in SODIUM CHLORIDE 0.9% 50 ML IV SCH (16:52)
[2018-04-05 20:00] VITALS: BP 138/71
[2018-04-05] MEDS: ATORVASTATIN CALCIUM 40 MG TABLET PO SCH (22:04)
[2018-04-05] MEDS: CEFTRIAXONE SODIUM 1 GM IVP SCH (22:04)
[2018-04-05] MEDS: HYDROXYZINE HCL 25 MG TABLET PO SCH (22:04)
[2018-04-05] MEDS: EPOETIN ALFA 20,000 UNIT/ML VIAL SQ SCH (23:23)
[2018-04-06] VITALS (7 sets, daily range): BP systolic 123–146; BP diastolic 49–81
[2018-04-06] MEDS: IPRATROPIUM/ALBUTEROL SULFATE 3 ML SOLUTION IH SCH ×4 (00:17→18:04)
[2018-04-06 03:48] LABS: BASOPHILS % (AUTO) 0.6 % (0.0-5.0); EOSINOPHILS % (AUTO) 5.4 % (0.0-8.0); HEMATOCRIT 24.1 % (36-48); LYMPHOCYTES % (AUTO) 11.4 % (21.0-51.0); MEAN CORPUSCULAR HEMOGLOBIN 31.6 pg (27.0-33.0); MEAN CORPUSCULAR VOLUME 98.6 fL (79-99); NEUTROPHILS % (AUTO) 77.6 % (40.0-77.0); NUCLEATED RED BLOOD CELLS 0.8 % (0.0-0.19); PLATELET COUNT (AUTO) 154 K/uL (130-400); RED BLOOD CELL COUNT(AUTO) 2.44 MIL/uL (4.00-5.50); RED CELL DISTRIBUTION WIDTH 17.1 % (11.0-15.5); WHITE BLOOD COUNT (AUTO) 8.8 K/uL (4.8-10.8)
[2018-04-06 04:02] LABS: AMMONIA < 10 umol/L (11-32); PHOSPHORUS 4.7 mg/dL (2.5-4.9)
[2018-04-06 04:23] LABS: B-TYPE NATRIURETIC PEPTIDE 388 pg/mL (0-100)
[2018-04-06] MEDS: INSULIN HUMULIN R 100 UNIT/ML 3ML SQ SCH ×4 (06:08→21:00)
[2018-04-06] MEDS: HEPARIN SODIUM 5000UNIT/ML 1ML VIAL SQ SCH ×2 (06:32→15:00)
[2018-04-06 07:32] LABS: ABG BASE EXCESS -1.5 mmol/L (-2.0-3.0); ABG OXYGEN SATURATION 89.6 % (95.0-99.0); ABG PCO2 70 mmHg (32-45)
[2018-04-06] MEDS: CALCIUM ACETATE 667 MG CAPSULE PO SCH ×3 (08:00→16:52)
[2018-04-06] MEDS: FLUOXETINE HCL 20 MG CAPSULE PO SCH (10:40)
[2018-04-06] MEDS: LEVOTHYROXINE 100 MCG TABLET PO SCH (10:40)
[2018-04-06] MEDS: FOLIC ACID/VITAMIN B COMP W-C 1 MG CAPSULE PO SCH (10:40)
[2018-04-06] MEDS: IRON SUCROSE COMPLEX 100 MG in SODIUM CHLORIDE 0.9% 50 ML IV SCH (10:41)
[2018-04-06] MEDS: HONEY 1 APPL/ML TUBE TP SCH (10:41)
[2018-04-06] MEDS: GABAPENTIN 300 MG CAPSULE PO SCH ×2 (10:41→21:39)
[2018-04-06] MEDS ORDERED: GABAPENTIN 300 MG CAPSULE PO SCH (14:00)
[2018-04-06] MEDS: HYDROXYZINE HCL 25 MG TABLET PO SCH (21:39)
[2018-04-06] MEDS: CEFTRIAXONE SODIUM 1 GM IVP SCH (21:39)
[2018-04-06] MEDS: ATORVASTATIN CALCIUM 40 MG TABLET PO SCH (21:39)
[2018-04-07] MEDS: IPRATROPIUM/ALBUTEROL SULFATE 3 ML SOLUTION IH SCH ×5 (00:54→23:54)
[2018-04-07] MEDS: HEPARIN SODIUM 5000UNIT/ML 1ML VIAL SQ SCH ×4 (01:17→23:24)
[2018-04-07 03:40] VITALS: BP 131/56
[2018-04-07 06:01] LABS: HEMATOCRIT 23.3 % (36-48); MEAN CORPUSCULAR HEMOGLOBIN 32.1 pg (27.0-33.0); MEAN CORPUSCULAR HGB CONC 32.5 g/dL (32.0-36.0); MEAN CORPUSCULAR VOLUME 98.8 fL (79-99); NUCLEATED RED BLOOD CELLS 1.3 % (0.0-0.19); PLATELET COUNT (AUTO) 151 K/uL (130-400); RED BLOOD CELL COUNT(AUTO) 2.36 MIL/uL (4.00-5.50); RED CELL DISTRIBUTION WIDTH 16.7 % (11.0-15.5); WHITE BLOOD COUNT (AUTO) 9.7 K/uL (4.8-10.8)
[2018-04-07 06:38] LABS: CREATININE 4.1 mg/dL (0.5-1.5); POTASSIUM 3.4 mmol/L (3.5-5.1); THYROID STIMULATING HORMONE 46.37 uIU/mL (0.36-3.74)
[2018-04-07] MEDS: INSULIN HUMULIN R 100 UNIT/ML 3ML SQ SCH ×4 (07:30→21:00)
[2018-04-07 08:00] VITALS: BP 134/59
[2018-04-07] MEDS: CALCIUM ACETATE 667 MG CAPSULE PO SCH ×3 (09:47→17:29)
[2018-04-07] MEDS: LEVOTHYROXINE 100 MCG TABLET PO SCH (09:48)
[2018-04-07] MEDS: GABAPENTIN 300 MG CAPSULE PO SCH ×3 (09:48→20:38)
[2018-04-07] MEDS: FLUOXETINE HCL 20 MG CAPSULE PO SCH (09:48)
[2018-04-07] MEDS: FOLIC ACID/VITAMIN B COMP W-C 1 MG CAPSULE PO SCH (09:48)
[2018-04-07] MEDS: LACTULOSE 20 GM/30 ML UDCUP PO PRN (09:48)
[2018-04-07] MEDS: ACETAMINOPHEN 325 MG TAB PO PRN (09:48)
[2018-04-07] MEDS: HONEY 1 APPL/ML TUBE TP SCH (09:49)
[2018-04-07 11:00] VITALS: BP 133/50
[2018-04-07 16:00] VITALS: BP 102/40
[2018-04-07 20:00] VITALS: BP 130/56
[2018-04-07] MEDS: CEFTRIAXONE SODIUM 1 GM IVP SCH (20:38)
[2018-04-07] MEDS: HYDROXYZINE HCL 25 MG TABLET PO SCH (20:38)
[2018-04-07] MEDS: ATORVASTATIN CALCIUM 40 MG TABLET PO SCH (20:38)
[2018-04-08] VITALS (7 sets, daily range): BP systolic 131–142; BP diastolic 50–76
[2018-04-08 04:11] LABS: ABG BASE EXCESS -1.7 mmol/L (-2.0-3.0); ABG HCO3 25.9 mmol/L (21.0-28.0); ABG OXYGEN SATURATION 94.9 % (95.0-99.0); ABG PCO2 56 mmHg (32-45)
[2018-04-08] MEDS: LEVOTHYROXINE 50 MCG TABLET PO SCH (06:06)
[2018-04-08] MEDS: HEPARIN SODIUM 5000UNIT/ML 1ML VIAL SQ SCH ×3 (06:08→23:04)
[2018-04-08 06:32] LABS: HEMATOCRIT 23.6 % (36-48); MEAN CORPUSCULAR HEMOGLOBIN 31.2 pg (27.0-33.0); MEAN CORPUSCULAR HGB CONC 32.1 g/dL (32.0-36.0); NUCLEATED RED BLOOD CELLS 0.8 % (0.0-0.19); PLATELET COUNT (AUTO) 146 K/uL (130-400); RED BLOOD CELL COUNT(AUTO) 2.43 MIL/uL (4.00-5.50); RED CELL DISTRIBUTION WIDTH 17.1 % (11.0-15.5); WHITE BLOOD COUNT (AUTO) 7.3 K/uL (4.8-10.8)
[2018-04-08] MEDS: INSULIN HUMULIN R 100 UNIT/ML 3ML SQ SCH ×4 (06:47→20:55)
[2018-04-08] MEDS: IPRATROPIUM/ALBUTEROL SULFATE 3 ML SOLUTION IH SCH ×4 (07:06→23:53)
[2018-04-08 07:07] LABS: ALBUMIN 1.9 g/dL (3.5-5.0); BILIRUBIN,TOTAL 0.2 mg/dL (0.2-1.0); CREATININE 3.4 mg/dL (0.5-1.5); MAGNESIUM 1.8 mg/dL (1.80-2.40); PHOSPHORUS 3.6 mg/dL (2.5-4.9); POTASSIUM 3.1 mmol/L (3.5-5.1); TOTAL PROTEIN, SERUM 6.4 g/dL (6.0-8.3)
[2018-04-08] MEDS: LEVOTHYROXINE 100 MCG TABLET PO SCH (08:00)
[2018-04-08] MEDS: CALCIUM ACETATE 667 MG CAPSULE PO SCH ×3 (08:00→18:30)
[2018-04-08 08:25] LABS: BASOPHILS % (MANUAL) 1 % (0-2); EOSINOPHILS % (MANUAL) 3 % (1-6); LYMPHOCYTES % (MANUAL) 20 % (22-44); MAN.DIFF COMMENT-IMPRESSION MANUAL DIFFERENTIAL; MONOCYTES % (MANUAL) 3 % (2-9); PLATELET MORPHOLOGY COMMENT ADEQUATE; SEGMENTED NEUTROPHILS % 73 % (40-70)
[2018-04-08] MEDS: FLUOXETINE HCL 20 MG CAPSULE PO SCH (12:47)
[2018-04-08] MEDS: FOLIC ACID/VITAMIN B COMP W-C 1 MG CAPSULE PO SCH (12:47)
[2018-04-08] MEDS: GABAPENTIN 300 MG CAPSULE PO SCH ×3 (12:48→20:49)
[2018-04-08] MEDS: HONEY 1 APPL/ML TUBE TP SCH (12:48)
[2018-04-08] MEDS: METHYLPREDNISOLONE SOD SUCC 40MG/ML 1ML IVP SCH ×2 (18:30→23:03)
[2018-04-08] MEDS: CEFTRIAXONE SODIUM 1 GM IVP SCH (20:49)
[2018-04-08] MEDS: ATORVASTATIN CALCIUM 40 MG TABLET PO SCH (20:49)
[2018-04-08] MEDS: HYDROXYZINE HCL 25 MG TABLET PO SCH (20:49)
[2018-04-08] MEDS: EPOETIN ALFA 20,000 UNIT/ML VIAL SQ SCH (20:50)
[2018-04-09 03:38] VITALS: BP 167/70
[2018-04-09] MEDS: HYDRALAZINE HCL 20 MG/ML VIAL IV PRN (04:10)
[2018-04-09 04:45] LABS: HEMATOCRIT 25.1 % (36-48); MEAN CORPUSCULAR HGB CONC 31.7 g/dL (32.0-36.0); NUCLEATED RED BLOOD CELLS 0.4 % (0.0-0.19); PLATELET COUNT (AUTO) 145 K/uL (130-400); RED BLOOD CELL COUNT(AUTO) 2.56 MIL/uL (4.00-5.50); RED CELL DISTRIBUTION WIDTH 17.3 % (11.0-15.5); WHITE BLOOD COUNT (AUTO) 8.7 K/uL (4.8-10.8)
[2018-04-09 05:14] LABS: CREATININE 3.6 mg/dL (0.5-1.5)
[2018-04-09] MEDS: METHYLPREDNISOLONE SOD SUCC 40MG/ML 1ML IVP SCH ×3 (06:34→22:48)
[2018-04-09] MEDS: HEPARIN SODIUM 5000UNIT/ML 1ML VIAL SQ SCH ×3 (06:35→22:50)
[2018-04-09] MEDS: INSULIN HUMULIN R 100 UNIT/ML 3ML SQ SCH ×4 (06:35→21:49)
[2018-04-09] MEDS: LEVOTHYROXINE 50 MCG TABLET PO SCH (06:35)
[2018-04-09] MEDS: LEVOTHYROXINE 100 MCG TABLET PO SCH ×2 (06:36→08:43)
[2018-04-09] MEDS: IPRATROPIUM/ALBUTEROL SULFATE 3 ML SOLUTION IH SCH ×4 (07:40→23:09)
[2018-04-09] MEDS: FLUOXETINE HCL 20 MG CAPSULE PO SCH (08:43)
[2018-04-09] MEDS: CALCIUM ACETATE 667 MG CAPSULE PO SCH ×3 (08:43→18:00)
[2018-04-09] MEDS: GABAPENTIN 300 MG CAPSULE PO SCH ×3 (08:43→21:40)
[2018-04-09] MEDS: FOLIC ACID/VITAMIN B COMP W-C 1 MG CAPSULE PO SCH (08:44)
[2018-04-09] MEDS: HONEY 1 APPL/ML TUBE TP SCH (08:44)
[2018-04-09 09:33] VITALS: BP 150/84
[2018-04-09 12:58] VITALS: BP 145/50
[2018-04-09 17:02] VITALS: BP 142/61
[2018-04-09 20:19] VITALS: BP 163/69
[2018-04-09] MEDS: CEFTRIAXONE SODIUM 1 GM IVP SCH (21:40)
[2018-04-09] MEDS: ATORVASTATIN CALCIUM 40 MG TABLET PO SCH (21:41)
[2018-04-09] MEDS: HYDROXYZINE HCL 25 MG TABLET PO SCH (21:41)
[2018-04-09] MEDS: LOSARTAN 50 MG TABLET PO SCH (21:49)
[2018-04-10 00:21] VITALS: BP 125/57
[2018-04-10 04:23] VITALS: BP 158/77
[2018-04-10 04:39] LABS: CREATININE 4.4 mg/dL (0.5-1.5); MAGNESIUM 2.1 mg/dL (1.80-2.40); POTASSIUM 3.7 mmol/L (3.5-5.1)
[2018-04-10] MEDS: HEPARIN SODIUM 5000UNIT/ML 1ML VIAL IJ PRN (05:05)
[2018-04-10] MEDS: SODIUM CHLORIDE 0.9% 1000ML 1,000 ML IV PRN (05:05)
[2018-04-10] MEDS: IPRATROPIUM/ALBUTEROL SULFATE 3 ML SOLUTION IH SCH ×4 (06:07→23:16)
[2018-04-10] MEDS: LEVOTHYROXINE 50 MCG TABLET PO SCH (06:07)
[2018-04-10] MEDS: METHYLPREDNISOLONE SOD SUCC 40MG/ML 1ML IVP SCH ×2 (06:07→17:41)
[2018-04-10] MEDS: INSULIN HUMULIN R 100 UNIT/ML 3ML SQ SCH ×4 (06:46→22:16)
[2018-04-10 08:21] VITALS: BP 153/62
[2018-04-10] MEDS: HONEY 1 APPL/ML TUBE TP SCH (09:00)
[2018-04-10] MEDS: FOLIC ACID/VITAMIN B COMP W-C 1 MG CAPSULE PO SCH (09:30)
[2018-04-10] MEDS: FLUOXETINE HCL 20 MG CAPSULE PO SCH (09:31)
[2018-04-10] MEDS: GABAPENTIN 300 MG CAPSULE PO SCH ×3 (09:31→21:26)
[2018-04-10] MEDS: CALCIUM ACETATE 667 MG CAPSULE PO SCH ×3 (09:31→17:24)
[2018-04-10] MEDS: HEPARIN SODIUM 5000UNIT/ML 1ML VIAL SQ SCH ×2 (09:43→17:33)
[2018-04-10 11:45] VITALS: BP 146/60
[2018-04-10 13:44] LABS: HEMOGLOBIN A1C 5.8 % (4.0-6.0)
[2018-04-10 13:48] LABS: CHOLESTEROL 141 mg/dL (<200); HDL CHOLESTEROL 78 mg/dL (35-85); LDL DIRECT 54 mg/dL (0-99); TRIGLYCERIDES 62 mg/dL (30-200)
[2018-04-10 16:00] VITALS: BP 124/56
[2018-04-10 19:00] VITALS: BP 133/61
[2018-04-10] MEDS: EPOETIN ALFA 20,000 UNIT/ML VIAL SQ SCH (21:25)
[2018-04-10] MEDS: LOSARTAN 50 MG TABLET PO SCH (21:25)
[2018-04-10] MEDS: HYDROXYZINE HCL 25 MG TABLET PO SCH (21:25)
[2018-04-10] MEDS: CEFTRIAXONE SODIUM 1 GM IVP SCH (21:26)
[2018-04-10] MEDS: ATORVASTATIN CALCIUM 40 MG TABLET PO SCH (21:26)
[2018-04-11] VITALS (7 sets, daily range): BP systolic 115–171; BP diastolic 54–80
[2018-04-11] MEDS: METHYLPREDNISOLONE SOD SUCC 40MG/ML 1ML IVP SCH ×4 (02:42→23:16)
[2018-04-11] MEDS: HEPARIN SODIUM 5000UNIT/ML 1ML VIAL SQ SCH ×4 (02:43→23:26)
[2018-04-11 04:48] LABS: HEMATOCRIT 23.5 % (36-48); MEAN CORPUSCULAR HGB CONC 32.7 g/dL (32.0-36.0); NUCLEATED RED BLOOD CELLS 0.6 % (0.0-0.19); PLATELET COUNT (AUTO) 173 K/uL (130-400); RED BLOOD CELL COUNT(AUTO) 2.39 MIL/uL (4.00-5.50); RED CELL DISTRIBUTION WIDTH 17.9 % (11.0-15.5)
[2018-04-11 05:14] LABS: CREATININE 3.8 mg/dL (0.5-1.5); POTASSIUM 3.6 mmol/L (3.5-5.1)
[2018-04-11] MEDS: LEVOTHYROXINE 50 MCG TABLET PO SCH (05:28)
[2018-04-11] MEDS: IPRATROPIUM/ALBUTEROL SULFATE 3 ML SOLUTION IH SCH ×4 (07:06→23:44)
[2018-04-11] MEDS: INSULIN HUMULIN R 100 UNIT/ML 3ML SQ SCH ×4 (07:16→22:13)
[2018-04-11] MEDS: HONEY 1 APPL/ML TUBE TP SCH (09:00)
[2018-04-11] MEDS: FLUOXETINE HCL 20 MG CAPSULE PO SCH (09:01)
[2018-04-11] MEDS: LEVOTHYROXINE 100 MCG TABLET PO SCH (09:01)
[2018-04-11] MEDS: FOLIC ACID/VITAMIN B COMP W-C 1 MG CAPSULE PO SCH (09:01)
[2018-04-11] MEDS: GABAPENTIN 300 MG CAPSULE PO SCH ×3 (09:01→21:59)
[2018-04-11] MEDS: CALCIUM ACETATE 667 MG CAPSULE PO SCH ×3 (09:01→17:36)
[2018-04-11] MEDS: CEFTRIAXONE SODIUM 1 GM IVP SCH (21:58)
[2018-04-11] MEDS: HYDROXYZINE HCL 25 MG TABLET PO SCH (21:59)
[2018-04-11] MEDS: ATORVASTATIN CALCIUM 40 MG TABLET PO SCH (21:59)
[2018-04-11] MEDS: LOSARTAN 50 MG TABLET PO SCH (22:01)
[2018-04-11] MEDS: LACTULOSE 20 GM/30 ML UDCUP PO PRN (22:09)
[2018-04-12 04:00] VITALS: BP 144/67
[2018-04-12 04:49] LABS: MEAN CORPUSCULAR HEMOGLOBIN 30.9 pg (27.0-33.0); MEAN CORPUSCULAR HGB CONC 31.1 g/dL (32.0-36.0); MEAN CORPUSCULAR VOLUME 99.2 fL (79-99); NUCLEATED RED BLOOD CELLS 0.5 % (0.0-0.19); PLATELET COUNT (AUTO) 168 K/uL (130-400); RED BLOOD CELL COUNT(AUTO) 2.52 MIL/uL (4.00-5.50); RED CELL DISTRIBUTION WIDTH 18.2 % (11.0-15.5); WHITE BLOOD COUNT (AUTO) 10.6 K/uL (4.8-10.8)
[2018-04-12 05:16] LABS: CREATININE 4.5 mg/dL (0.5-1.5); POTASSIUM 3.7 mmol/L (3.5-5.1)
[2018-04-12] MEDS: INSULIN HUMULIN R 100 UNIT/ML 3ML SQ SCH ×2 (05:44→11:30)
[2018-04-12] MEDS: METHYLPREDNISOLONE SOD SUCC 40MG/ML 1ML IVP SCH (05:46)
[2018-04-12] MEDS: LEVOTHYROXINE 50 MCG TABLET PO SCH (05:55)
[2018-04-12] MEDS: IPRATROPIUM/ALBUTEROL SULFATE 3 ML SOLUTION IH SCH ×3 (06:05→18:30)
[2018-04-12] MEDS: CALCIUM ACETATE 667 MG CAPSULE PO SCH ×2 (08:00→12:56)
[2018-04-12 08:51] VITALS: BP 119/53
[2018-04-12] MEDS ORDERED: PHARMACY COMMUNICATION MISC SCH (10:45)
[2018-04-12] MEDS ORDERED: MEDROL DAY 1 BREAKFAST PO NR ×2 (10:59→11:01)
[2018-04-12] MEDS ORDERED: MEDROL DAY 1 LUNCH AND DINNER PO NR (12:00)
[2018-04-12] MEDS: LEVOTHYROXINE 100 MCG TABLET PO SCH (12:49)
[2018-04-12] MEDS: FLUOXETINE HCL 20 MG CAPSULE PO SCH (12:49)
[2018-04-12] MEDS: GABAPENTIN 300 MG CAPSULE PO SCH ×2 (12:50→12:56)
[2018-04-12] MEDS: FOLIC ACID/VITAMIN B COMP W-C 1 MG CAPSULE PO SCH (12:50)
[2018-04-12 12:54] VITALS: BP 129/61
[2018-04-12] MEDS: LACTULOSE 20 GM/30 ML UDCUP PO PRN (13:00)
[2018-04-12] MEDS: HONEY 1 APPL/ML TUBE TP SCH (13:02)
[2018-04-12 17:13] VITALS: BP 119/54
[2018-04-12] MEDS ORDERED: HEPARIN SODIUM 5000UNIT/ML 1ML VIAL SQ SCH (21:00)
[2018-04-12] MEDS ORDERED: MEDROL DAY1 HS PO NR (21:00)
[2018-04-13] MEDS ORDERED: MEDROL DAY 2 BRK PO NR (07:30)
[2018-04-13] MEDS ORDERED: MEDROL DAY 2 LCH PO NR (11:30)
[2018-04-13] MEDS ORDERED: MEDROL DAY 2 DIN PO NR (16:30)
[2018-04-13] MEDS ORDERED: MEDROL DAY 2 HS PO NR (21:00)
[2018-04-14] MEDS ORDERED: MEDROL DAY 3 PO NR (07:30)
[2018-04-15] MEDS ORDERED: MEDROL DAY 4 BKF PO NR (07:30)
[2018-04-15] MEDS ORDERED: MEDROL DAY 4 LCH PO NR (11:30)
[2018-04-15] MEDS ORDERED: MEDROL DAY 4 DIN PO NR (16:30)
[2018-04-16] MEDS ORDERED: MEDROL DAY 5 BKF PO NR (07:30)
[2018-04-16] MEDS ORDERED: MEDROL DAY 5 HS PO NR (21:00)
[2018-04-17] MEDS ORDERED: MEDROL DAY 6 PO NR (07:30)
== END 2018-04-12 20:15 | DRG 682 ==
LOC: EDH 21:54 → EDHIP 23:45 → OBSVTOIN 23:45 → 2AH 03-23 01:04 → 3AH 03-26 22:46 → 2CH 03-29 12:19 → 3DH 03-31 17:16
PROVIDERS: ADMIT Family Medicine; ATTEND Family Medicine
PROC: 5A09457 Assistance with Respiratory Ventilation, 24-96 Consecutive Hours, Continuous Positive Airway Pressure (ICD-10-PCS; 2018-03-23)
PROC: 02HV33Z Insertion of Infusion Device into Superior Vena Cava, Percutaneous Approach (ICD-10-PCS; principal; 2018-03-29)
PROC: 5A1D70Z Performance of Urinary Filtration, Intermittent, Less than 6 Hours Per Day (ICD-10-PCS; 2018-03-29)
PROC: 5A09457 Assistance with Respiratory Ventilation, 24-96 Consecutive Hours, Continuous Positive Airway Pressure (ICD-10-PCS; 2018-03-29)
PROC: 5A1D70Z Performance of Urinary Filtration, Intermittent, Less than 6 Hours Per Day (ICD-10-PCS; 2018-03-30)
PROC: 5A1D70Z Performance of Urinary Filtration, Intermittent, Less than 6 Hours Per Day (ICD-10-PCS; 2018-04-01)
PROC: 02H633Z Insertion of Infusion Device into Right Atrium, Percutaneous Approach (ICD-10-PCS; 2018-04-02)
PROC: 5A1D70Z Performance of Urinary Filtration, Intermittent, Less than 6 Hours Per Day (ICD-10-PCS; 2018-04-03)
PROC: 5A1D70Z Performance of Urinary Filtration, Intermittent, Less than 6 Hours Per Day (ICD-10-PCS; 2018-04-05)
PROC: 5A09357 Assistance with Respiratory Ventilation, Less than 24 Consecutive Hours, Continuous Positive Airway Pressure (ICD-10-PCS; 2018-04-05)
PROC: 5A1D70Z Performance of Urinary Filtration, Intermittent, Less than 6 Hours Per Day (ICD-10-PCS; 2018-04-08)
PROC: 5A1D70Z Performance of Urinary Filtration, Intermittent, Less than 6 Hours Per Day (ICD-10-PCS; 2018-04-10)
PROC: 5A1D70Z Performance of Urinary Filtration, Intermittent, Less than 6 Hours Per Day (ICD-10-PCS; 2018-04-12)
DX: N17.9 Acute kidney failure, unspecified (principal); J96.21 Acute and chronic respiratory failure with hypoxia; G93.40 Encephalopathy, unspecified; I13.2 Hypertensive heart and chronic kidney disease with heart failure and with stage 5 chronic kidney disease, or end stage renal disease; J18.9 Pneumonia, unspecified organism; E11.21 Type 2 diabetes mellitus with diabetic nephropathy; D69.6 Thrombocytopenia, unspecified; E11.51 Type 2 diabetes mellitus with diabetic peripheral angiopathy without gangrene; I50.43 Acute on chronic combined systolic (congestive) and diastolic (congestive) heart failure; J96.22 Acute and chronic respiratory failure with hypercapnia; E87.2 Acidosis; E66.2 Morbid (severe) obesity with alveolar hypoventilation; N39.0 Urinary tract infection, site not specified; F32.1 Major depressive disorder, single episode, moderate; J44.0 Chronic obstructive pulmonary disease with (acute) lower respiratory infection; Z68.45 Body mass index [BMI] 70 or greater, adult; N18.6 End stage renal disease; E11.22 Type 2 diabetes mellitus with diabetic chronic kidney disease; K58.0 Irritable bowel syndrome with diarrhea; B96.1 Klebsiella pneumoniae [K. pneumoniae] as the cause of diseases classified elsewhere; Z99.2 Dependence on renal dialysis; D64.9 Anemia, unspecified; E03.9 Hypothyroidism, unspecified; E11.36 Type 2 diabetes mellitus with diabetic cataract; E78.5 Hyperlipidemia, unspecified; E83.39 Other disorders of phosphorus metabolism; E87.5 Hyperkalemia; F41.1 Generalized anxiety disorder; G89.29 Other chronic pain; H10.9 Unspecified conjunctivitis; I08.0 Rheumatic disorders of both mitral and aortic valves; M19.90 Unspecified osteoarthritis, unspecified site; M48.00 Spinal stenosis, site unspecified; Z74.01 Bed confinement status; Z79.899 Other long term (current) drug therapy; Z96.653 Presence of artificial knee joint, bilateral; Z90.710 Acquired absence of both cervix and uterus; Z83.3 Family history of diabetes mellitus; Z82.49 Family history of ischemic heart disease and other diseases of the circulatory system
CPT/HCPCS: 36415; 36556; 36581; 36600; 71045; 76770; 77001; 80048; 80053; 80061; 81001; 82040; 82140; 82270; 82550; 82553; 82728; 82803; 82948; 83036; 83540; 83550; 83605; 83735; 83880; 84075; 84100; 84132; 84443; 84484; 84550; 85025; 85027; 85610; 85730; 86701; 86704; 86706; 87040; 87071; 87088; 87106; 87186; 87205; 87340; 87390; 87520; 90935; 93005; 93306; 93970; 94640; 94660; 94664; 97039; A4218; A4344; C1750; C1752; J0360; J0696; J0885; J1644; J1756; J1815; J1885; J1940; J2543; J2920; J3490; J7030; J7509